=== PATIENT | female | born 1965 | race Asian ===

== ENCOUNTER → 2017-05-22 | Outpatient (CLI) | payer BC | END | disposition home or self-care (01) | LOC: C.LAB 17:00 | PROVIDERS: ATTEND Family Medicine | DX: R07.9 Chest pain, unspecified (principal) ==

== ENCOUNTER → 2017-12-28 | Day surgery (SDC) | payer OTHER ==
[2017-12-19 08:23] VITALS: Ht 160 cm
--- NOTE | 2017-12-22 10:16 | HISTORY & PHYSICAL EXAMINATION ---
DATE OF ADMISSION: 12/28/2017 CHIEF COMPLAINT: Vaginal bleeding. HISTORY OF PRESENT ILLNESS: The patient is a 52-year-old 2, para 0, who has had 2 spontaneous ABs. SHE IS ALLERGIC TO PENICILLIN AND LIDOCAINE. Her last menstrual period was 02/07/2014. She then had 2 episodes of vaginal spotting. A transvaginal ultrasound on 12/05/2017 showed an endometrial stripe over 3 mm. No ovarian enlargement or pathology noted. She is presently being scheduled for an outpatient D&C. PAST MEDICAL HISTORY: ALLERGY TO PENICILLIN AND LIDOCAINE. PAST SURGICAL HISTORY: She has had 2 LEEP procedures and a cervical polyp removed and she had a sebaceous cyst removed. MEDICAL HISTORY: No history of rheumatic fever, heart disease, heart murmur, diabetes, or tuberculosis. SOCIAL HISTORY: No smoking. No alcohol intake. She works for [employer]. FAMILY HISTORY: Mom has polymyalgia. Father at age 64 of an MN. One brother and one sister, one sister has allergies. REVIEW OF SYSTEMS: She has occasional migraines. PHYSICAL EXAMINATION: GENERAL: Well-developed, well-nourished 52-year-old female, alert, oriented x3 and cooperative in no acute distress, appears her stated age. EYES: Conjunctivae are pink. Sclerae are white. No evidence of jaundice. EARS: Had normal light reflex bilaterally. NOSE: Had normal mucosa. Septum is midline. There were no polyps. THROAT: Had no erythema or evidence of infection. Teeth are in good state of repair. HEAD: Normocephalic, normal distribution of hair. NECK: Supple. Trachea midline. Thyroid is not enlarged. There is no adenopathy appreciated. Both carotids are of good intensity. CHEST: Clear to auscultation and percussion. No wheezes, rales or rhonchi appreciated. HEART: Had regular rhythm. S1 and S2 are normal. BREASTS: Normal. ABDOMEN: Soft and nontender. PELVIC: Revealed atrophic vaginitis. Uterus was normal size, anteverted. There were no adnexal masses appreciated. IMPRESSIONS OF THIS CASE: Postmenopausal bleeding, status post loop electrosurgical excision procedure, status post removal of cervical polyp.
[~2017-12-28] VITALS: Ht 160 cm
[~2017-12-28] MED LIST: ALOE1LIQ PO; ATROPINE SULFATE 0.1 MG/ML 5ML SYR IV PRN; COCO1OIL2 PO; DEXAMETHASONE SOD INJ 4 MG/ML VIAL ONE; FENTANYL CITRATE INJ 50 MCG/1 ML 2 ML VIAL IV PRN; FENTANYL CITRATE INJ 50 MCG/1 ML 2 ML VIAL ONE; HYDROCODONE/ACETAMOPHEN 5/325MG TAB PO PRN; IBUPROFEN 600 MG TAB PO PRN; KETOROLAC TROMETHAMINE 30 MG/ML VIAL IV. PRN; KETOROLAC TROMETHAMINE 30 MG/ML VIAL ONE; LACTATED RINGER'S 1000ML 1,000 ML IV SCH; MIDAZOLAM HCL 1 MG/ML 2ML VIAL ONE; MILK THISTLE PO; ONDANSETRON INJ 2 MG/ML 2 ML VIAL IV PRN; ONDANSETRON INJ 2 MG/ML 2 ML VIAL ONE; OXYCODONE/ACETAMINOPHEN 5-325 TAB PO PRN; PATIENT'S WEIGHT NEEDED SCH; PROPOFOL IV EMULSION 10 MG/ML 20 ML VIAL IV ONE; SODIUM CHLORIDE 0.9% 1000ML 1,000 ML IV SCH; ZINC1TAB4 PO
--- NOTE | 2017-12-28 09:17 | History & Physical Bridge Note ---
H&P Re-Evaluation Bridge Note: I have examined the patient, reviewed the History & Physical and in the interval since the performance of the History & Physical I have noted the following changes of clinical significance: No changes noted
--- NOTE | 2017-12-28 09:43 | [facility] Post Operative Brief Note ---
Immediate Operative Summary Operative Date Dec 28, 2017. Pre-Operative Diagnosis Post Menopausal Bleeding Post-Operative Diagnosis same Procedure(s) Performed Dilatation And Curettage Surgeon Dr. Shaista Flores Hotel Lobby Concierge Surgeon(s) 0 Estimated Blood Loss 5cc Findings Consistent with Post-Op Diagnosis uterus sounded to 7 cm Specimens A. Endometrial Curettings Drains None Anesthesia Type General Complication(s) none Disposition Disposition: Recovery Room / PACU
--- NOTE | 2017-12-28 09:54 | Discharge Instructions-SurgCtr ---
Discharge Instructions Date of Service Dec 28, 2017. Visit Reason for Visit: Post Menopausal Bleeding Discharge Discharge Diagnosis / Problem: POST MENOPAUSAL BLEEDING Discharge Goals Goal(s): Learn about illness, Therapeutic intervention Activity Recommendations Activity Limitations: as noted below ACTIVITY RECOMMENDATIONS: * Avoid tampons, douching, hot tubs, pools, and intercourse until bleeding has stopped. * May shower as usual. * No strenuous activity for 24-48 hours. After 24-48 hours, you may do anything you feel like doing (driving and sports are okay). SPECIAL CARE INSTRUCTIONS: Special Diet: * Mild nausea may occur in the immediate post-operative period. * Take clear liquids such as tea, cola or bouillon until all nausea has subsided; you may then resume your normal diet. Special Care: * Light bleeding and vaginal spotting can last from a few days to 3-4 weeks. Call your doctor if bleeding becomes heavier than the heaviest part of your period. * Check your temperature twice a day for one week. If it goes above 100.4 degrees Fahrenheit (38.0 Celsius), notify your doctor. * Call your doctor's office for an appointment for 6 weeks after your surgery. FOLLOW-UP VISIT: Call your doctor's office for an appointment for 6 weeks after your surgery. Anesthesia . Post Anesthesia Instructions: If you have had General Anesthesia or IV Sedation: * Do not drive today. * Resume driving when surgeon permits. * Do not make important decisions or sign legal documents today. * Call surgeon for: 1. Temperature elevations greater than 101 degrees F. 2. Uncontrollable pain. 3. Excessive bleeding. 4. Persistent nausea and vomiting. 5. Medication intolerance (nausea, vomiting or rash). * For nausea and vomiting use only clear liquids such as: tea, soda, bouillon until nausea subsides, then gradually increase diet as tolerated. * If you have any concerns or questions, call your surgeon's office. If physician is unavailable and it is an emergency, call 911 or go to the nearest emergency room. . Instructions / Follow-Up Instructions / Follow-Up ACTIVITY RECOMMENDATIONS: * Avoid tampons, douching, hot tubs, pools, and intercourse until bleeding has stopped. * May shower as usual. * No strenuous activity for 24-48 hours. After 24-48 hours, you may do anything you feel like doing (driving and sports are okay). SPECIAL CARE INSTRUCTIONS: Special Diet: * Mild nausea may occur in the immediate post-operative period. * Take clear liquids such as tea, cola or bouillon until all nausea has subsided; you may then resume your normal diet. Special Care: * Light bleeding and vaginal spotting can last from a few days to 3-4 weeks. Call your doctor if bleeding becomes heavier than the heaviest part of your period. * Check your temperature twice a day for one week. If it goes above 100.4 degrees Fahrenheit (38.0 Celsius), notify your doctor. * Call your doctor's office for an appointment for 6 weeks after your surgery. FOLLOW-UP VISIT: Call your doctor's office for an appointment for 6 weeks after your surgery. Diet Recommendations Home Diet: resume previous diet Procedures Procedures Performed: Dilatation And Curettage Pending Studies Studies pending at discharge: no Medical Emergencies . Who to Call and When: Medical Emergencies: If at any time you feel your situation is an emergency, please call 911 immediately. . Non-Emergent Contact Non-Emergency issues call your: Bench Worker Helper Call Non-Emergent contact if: temperature is above 100.5 . . "Provider Documentation" section prepared by Abdoul Flores. .
--- NOTE | 2017-12-28 10:26 | OPERATIVE REPORT ---
DATE OF OPERATION: 12/28/2017 PROCEDURE: D&C. INDICATIONS FOR SURGERY: Postmenopausal bleeding. PREOPERATIVE DIAGNOSIS: Postmenopausal bleeding. POSTOPERATIVE DIAGNOSIS: Same. Uterus sounded 7 cm. SURGEON: Dr. Flores. ESTIMATED BLOOD LOSS: 5 mL. ANESTHESIA: General. OPERATIVE FINDINGS AND PROCEDURE: The patient was brought to the OR table, correctly identified by armband and conversation. General anesthesia was administered. Perineum and vagina were painted with Betadine paint and draped in the usual sterile fashion. Catheter was used to empty the bladder. Careful pelvic exam under anesthesia revealed a normal postmenopausal size uterus. There were no adnexal masses appreciated. Weighted speculum was placed in the posterior vagina. The anterior lip of the cervix grasped with single tooth tenaculum. Uterus was sounded to 7 cm. Cervix was dilated with graduated dilators. Small sharp serrated curet was placed in the uterine cavity. All 4 quadrants of the uterus were thoroughly and systematically cureted. This was productive of a scant amount of tissue and then, it was recuretted with a smooth curette and Ovum forceps, it was opened and closed. No additional tissue was obtained. Following thorough and systematic curette of the entire endometrial cavity, hemostasis was good. Instruments were removed. The patient tolerated the procedure well and left the OR in good condition. I attest to the content of the Intraoperative Record and any orders documented therein. Any exception s are noted below.
[2017-12-28 10:48] VITALS: TEMP 37
--- NOTE | 2017-12-28 11:00 | Anesthesia Progress Nt - [facility] ---
Anesthesia Post Op Note Date & Time Dec 28, 2017 at 11:00 Vital Signs Pain Intensity: 1 Vital Signs Past 12 Hours Date Time Temp Pulse Resp B/P (MAP) Pulse Ox O2 Delivery O2 Flow Rate FiO2 12/28/17 10:48 37.0 80 108/73 (85) 100 Room Air 12/28/17 10:27 36.7 61 18 71/ 100 Room Air 12/28/17 10:21 64 17 107/72 100 12/28/17 10:21 64 17 12/28/17 10:16 64 20 108/73 99 12/28/17 10:16 65 20 12/28/17 10:11 77 22 118/73 99 12/28/17 10:11 79 22 12/28/17 10:06 71 17 100 12/28/17 10:06 70 17 12/28/17 10:05 109/72 12/28/17 10:01 66 16 12/28/17 10:01 65 16 100 12/28/17 10:00 106/71 12/28/17 09:56 70 21 100 12/28/17 09:56 72 21 12/28/17 09:55 108/69 12/28/17 09:53 77 20 98 12/28/17 09:53 77 20 12/28/17 09:51 115/66 12/28/17 09:49 135/91 12/28/17 09:48 36.7 89 18 135/91 97 Room Air 12/28/17 08:29 36.5 80 20 107/75 (86) 96 Room Air Notes Mental Status: alert / awake / arousable, participated in evaluation Pt Amnestic to Procedure: Yes Nausea / Vomiting: adequately controlled Pain: adequately controlled Airway Patency, RR, SpO2: stable & adequate BP & HR: stable & adequate Hydration State: stable & adequate Anesthetic Complications: no major complications apparent
[2017-12-28 11:02] VITALS: BP 107/74; PULSE 65; O2SAT 100
== END | disposition home or self-care (01) ==
LOC: X.SURG 08:07
PROVIDERS: ATTEND Obstetrics & Gynecology
DX: N95.0 Postmenopausal bleeding (principal); Z88.0 Allergy status to penicillin; Z79.899 Other long term (current) drug therapy; Z98.890 Other specified postprocedural states; Z82.49 Family history of ischemic heart disease and other diseases of the circulatory system